=== PATIENT | male | born 1960 | race Caucasian/White ===

== ENCOUNTER 2020-10-30 10:06 | Emergency (ER) | payer OTHER ==
[~2020-10-30] VITALS: Ht 177.8 cm; Wt 158.8 kg
[2020-10-30 10:35] VITALS: Ht 177.8 cm; Wt 158.8 kg
[2020-10-30 13:51] VITALS: BP 105/70
== END 2020-10-30 13:51 | disposition home or self-care (01) ==
LOC: ED 10:06
DX: S80.12XA Contusion of left lower leg, initial encounter (principal); M19.90 Unspecified osteoarthritis, unspecified site; W01.0XXA Fall on same level from slipping, tripping and stumbling without subsequent striking against object, initial encounter; Y93.89 Activity, other specified; Y92.89 Other specified places as the place of occurrence of the external cause; Y99.8 Other external cause status